=== PATIENT | male | born 1980 | race Two or more races ===

== ENCOUNTER 2024-06-20 05:28 | Emergency (ER) | payer MEDICAID, OTHER ==
[~2024-06-20] VITALS: Ht 165.1 cm; Wt 81.4 kg
[2024-06-20 07:46] VITALS: BP 128/80; PULSE 72; RESP 16; TEMP 98; O2SAT 98
[2024-06-20] MEDS ORDERED: ERY05OO OP (08:21)
== END 2024-06-20 08:23 | disposition home or self-care (01) ==
LOC: ER 05:28
DX: H57.8A2 Foreign body sensation, left eye (principal); Z79.899 Other long term (current) drug therapy

== ENCOUNTER 2024-08-24 05:41 | Emergency (ER) | payer MEDICAID ==
[~2024-08-24] VITALS: Ht 149.9 cm; Wt 83.7 kg
[~2024-08-24 05:41] MED LIST: ERY05OO OP
[2024-08-24] MEDS ORDERED: HYDR-3682 PO (07:29)
[2024-08-24] MEDS ORDERED: CALA1SUS2 EX (07:29)
[2024-08-24] MEDS ORDERED: TRIO1TP EX (07:29)
[2024-08-24] MEDS ORDERED: METH4PAK PO (07:29)
--- NOTE | 2024-08-24 07:30 | ED.PDOC ---
HPI Allergic reaction HPI Comments 44 year old male presents with allergic reaction x 1 day Unknown cause C/o itching. No other complaint Denies chest pain shortness of breath Denies tightness of the throat Chief Complaint: Rash Time Seen by MD: 06:22 Reviewed Notes: Nurses Notes, Medications, Allergies Allergies: Coded Allergies: NO KNOWN ALLERGIES (Unverified , 06/20/24) Home Meds Active Scripts Triamcinolone Acetonide (Triamcinolone Acetonide) 0.1 % Cre, 1 GRAMS EX BID for 5 Days, #60 GRAMS 0 Refills Prov:DANIELLE RANDLE NP 08/24/24 Calamine-Zinc Oxide (Calamine 8-8 %) 1 Aye Aye, 1 APPLIC EX BID for 10 Days, #1 BOTTLE 0 Refills Prov:DANIELLE RANDLE NP 08/24/24 Hydroxyzine Hcl (Hydroxyzine Hcl) 25 Mg Tab, 1 TAB PO TIDPRN PRN for 14 Days, #42 TAB 0 Refills Prov:DANIELLE RANDLE NP 08/24/24 Methylprednisolone (Medrol Dosepak) 4 Mg Rashawn, 4 MG PO UD, #21 TAB 0 Refills UAD Prov:DANIELLE RANDLE NP 08/24/24 Erythromycin (Erythromycin) 5 Mg/Gm Oin, 1 APPLIC OP TID for 10 Days, #5 GRAMS 0 Refills Prov:DANIELLE RANDLE NP 06/20/24 Information Source: Patient Mode of Arrival: Ambulatory Family History Family History: Reviewed,noncontributory to illness Social History Smoker: Non-Smoker Alcohol: Denies ETOH Use Drugs: Denies Drug Use All Other Systems: Reviewed and Negative (Per HPI) Physical Exam General Appearance: No Apparent Distress, Normal HEENT: Normal ENT Inspection, Pharynx Normal, TMs Normal Neck: Full Range of Motion, Non-Tender, Normal, Normal Inspection Respiratory: Chest Non-Tender, Lungs Clear, No Accessory Muscle Use, No Respiratory Distress, Normal Breath Sounds Cardiovascular: No Edema, No JVD, No Murmur, No Gallop, Normal Peripheral Pulses, Regular Rate/Rhythm Breast Exam: Deferred Gastrointestinal: No Organomegaly, Non Tender, No Pulsatile Mass, Normal Bowel Sounds, Soft Genitalia: Deferred Pelvic: Deferred Rectal: Deferred Extremities: No calf tenderness, Normal capillary refill, Normal inspection, Normal range of motion, Non-tender, No pedal edema Musculoskeletal : Apperance: Normal Neurologic: Alert, No Motor Deficits, Normal Affect, Normal Mood, No Sensory Deficits Cerebellar Function: Normal Reflexes: Normal Skin: Dry, Normal Color, Rash (Scattered hives.), Warm Lymphatic: No Adenopathy Was a procedure done? Was a procedure done?: No Differential diagnosis (all) Differential Diagnosis: Urticaria X-Ray, Labs, Meds, VS Vital Signs Date Time Temp Pulse Resp B/P (MAP) Pulse Ox O2 Delivery O2 Flow Rate FiO2 08/24/24 07:35 97.9 75 18 150/89 (109) 98 97.9 08/24/24 07:35 75 18 98 Room Air 08/24/24 05:59 97.9 75 18 150/89 (109) 98 Current Medications Medications (Trade) Dose Ordered Sig/Arelis Route Start Time Stop Time Status Last Admin Methylprednisolone Sodium Succinate (Solu Medrol) 125 mg ONCE ONCE IM 08/24/24 07:30 08/24/24 07:31 DC 08/24/24 07:39 Diphenhydramine HCl (Benadryl Capsule) 25 mg ONCE ONCE PO 08/24/24 07:30 08/24/24 07:31 DC 08/24/24 07:39 Famotidine (Pepcid Tablet) 20 mg ONCE ONCE PO 08/24/24 07:30 08/24/24 07:31 DC 08/24/24 07:39 X-Ray, Labs, Meds, VS Comment Pt presents ED for an allergic reaction. Solu-Medrol and Pepcid administered in ED for treatment. Patient reports significant improvement in symptoms following treatment. Patient was monitored in the ED for an extended amount of time. Medrol Dosepak prescribed for additional treatment. Patient was instructed to take hydroxyzine and use calamine lotion as needed for itchiness Follow-up with PCP in 1 to 2 days. Patient needs over hauler helper referral for further testing Return to ED if symptoms persist, or sooner if symptoms worsen Time of 1ST Reevaluation: 07:30 Reevaluation 1ST: Improved Patient Education/Counseling: Diagnosis, Treatment Family Education/Counseling: Diagnosis, Treatment Departure 1 Departure Time of Disposition: 07:45 Impression: Primary Impression: Allergic reaction Qualified Codes: T78.40XA - Allergy, unspecified, initial encounter Disposition: HOME / SELF CARE / HOMELESS Condition: Stable e-Prescriptions Triamcinolone Acetonide (Triamcinolone Acetonide) 0.1 % Cre 1 GRAMS EX BID for 5 Days, #60 GRAMS 0 Refills Prov: DANIELLE RANDLE NP 08/24/24 Calamine-Zinc Oxide (Calamine 8-8 %) 1 Aye Aye 1 APPLIC EX BID for 10 Days, #1 BOTTLE 0 Refills Prov: DANIELLE RANDLE NP 08/24/24 Hydroxyzine Hcl (Hydroxyzine Hcl) 25 Mg Tab 1 TAB PO TIDPRN PRN for 14 Days, #42 TAB 0 Refills Prov: DANIELLE RANDLE NP 08/24/24 Methylprednisolone (Medrol Dosepak) 4 Mg Rashawn 4 MG PO UD, #21 TAB 0 Refills UAD Prov: DANIELLE RANDLE NP 08/24/24 Critical Care Note Critical Care Time?: No Stability Stability form required: No Heart Score Heart Score: Heart Score Response (Comments) Value History N/A 0 EKG N/A 0 Age N/A 0 Risk Factors N/A 0 Troponin N/A 0 Total 0 DANIELLE RANDLE NP Aug 24, 2024 07:30
[2024-08-24 07:35] VITALS: BP 150/89; PULSE 75; RESP 18; TEMP 97.9; O2SAT 98
[2024-08-24] MEDS: methylPREDNISolone SOD SUCC 125 MG/2 ML VL IM ONE (07:39)
[2024-08-24] MEDS: FAMOTIDINE 20 MG TAB PO ONE (07:39)
[2024-08-24] MEDS: diphenhdrAMINE HCL 25 MG CAP PO ONE (07:39)
== END 2024-08-24 08:16 | disposition home or self-care (01) ==
LOC: ER 05:41
DX: T78.49XA Other allergy, initial encounter (principal); Z79.899 Other long term (current) drug therapy; X58.XXXA Exposure to other specified factors, initial encounter
CPT/HCPCS: 96372; 99283; J2919